=== PATIENT | female | born 1980 | race Caucasian/White ===

== ENCOUNTER 2021-06-24 11:35 | Emergency (ER) | payer BC ==
[~2021-06-24] VITALS: Ht 175.3 cm; Wt 112.0 kg
[2021-06-24 12:40] LABS: HEMATOCRIT 35.2 % (37.0-47.0); HEMOGLOBIN 12.4 gm/dL (12.0-15.0); MCH 32.8 pg (26.0-34.0); MCHC 35.3 g/dL (28.0-37.0); MCV 92.9 fL (80.0-100.0); RBC 3.79 mil/uL (4.20-5.00); RDW 13.4 % (10.5-14.5); WBC 8.4 thou/uL (4.0-11.0)
[2021-06-24 12:47] LABS: ANION GAP 11 mmol/L (7-16); BUN 9 mg/dL (7-18); CALCIUM 8.9 mg/dL (8.5-10.1); CHLORIDE 106 mmol/L (98-107); CO2 23 mmol/L (21-32); CREATININE 0.7 mg/dL (0.6-1.0); GLUCOSE 98 mg/dL (74-106); POTASSIUM 3.8 mmol/L (3.5-5.1); SODIUM 140 mmol/L (136-145)
[2021-06-24 12:59] LABS: TROPONIN-I <0.06 ng/mL (<0.06)
[2021-06-24] MEDS ORDERED: VISTARIL 25 MG25 M1 PO (13:22)
[2021-06-24] MEDS ORDERED: XANAX 0.5 MG0.5 MG PO (13:23)
[2021-06-24 13:25] VITALS: BP 115/78
--- NOTE | 2021-06-26 09:15 | EKG ---
[address] [address] ELECTROCARDIOGRAM REPORT Name: MASON KINCAIDLEY Aguilar Room #: [facility]#: [id number] Admission: 06/24/21 Attend Phys: Discharge: 06/24/21 Date of : 82 Report #: [id number] [facility] ED Test Date: 2021-06-24 Test Time: 11:42:11 Pat Name: LADAN KINCAID Department: Room: Gender: F [employer]: : 1980 Requested By: Edgar Jackson Order Number: [id number] MD: Abelardo Parrish Measurements Intervals [place] Rate: 89 P: 45 ID: [id number] QRS: 63 QRSD: 94 T: 14 QT: 341 QTc: 415 Interpretive Statements Sinus rhythm Normal tracing No previous ECG available for comparison Electronically Signed On 06-26-2021 9:15:52 CDT by Abelardo Parrish [email or web address] <ELECTRONICALLY SIGNED> By: Abelardo Parrish MD, [facility] 06/26/21 0915 1142 1142 Abelardo Parrish MD, FACC /EPI
== END 2021-06-24 13:25 | disposition home or self-care (01) ==
LOC: ER 11:35
PROVIDERS: Physician Assistant
DX: F41.9 Anxiety disorder, unspecified (principal); R07.89 Other chest pain; Z88.2 Allergy status to sulfonamides